=== PATIENT | male | born 1970 | race African-American/Black ===

== ENCOUNTER 2021-04-27 14:00 | Emergency (ER) | payer SELFPAY ==
[~2021-04-27] VITALS: Ht 182.9 cm; Wt 83.9 kg
[2021-04-27 14:00] VITALS: BP_SYST 141
--- NOTE | 2021-04-27 15:00 | NUR ---
Placed in room 5 . 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 To gown for exam. Side rails up. Report given to JUSTINE Rao.
--- NOTE | 2021-04-27 15:17 | NUR ---
DR CHAVIS AT BEDSIDE FOR EXAM .
--- NOTE | 2021-04-27 15:29 | NUR ---
RECEIVED PT LAYING IN BED, ON PHONE. NOT MAKING DIRECT EYE CONTACT. PT VERRBALIZED " I'M PISSED RIGHT NOW" PT AAOX4, IN NAD. RESP EVEN AND UNLABORED. ON RA @99% . PT BIBA FROM STREET FOR BEING SEEN ON THE SIDEWALK SLEEPING. PT DENIES ANY ETOH, BUT ADMITS TO SMOKING WEED. PT DENIES ANY PAIN, BUT REQUESTING A PHYSICAL. DENIES ANY INJURY. STATES HE'S MAD AT SOMEONE. DENIES ANY SI/HI. SAFETY PRECAUTIINS IN PLACE, PT INFORMED TO PUT GOWN ON FOR DR CHAVIS ASSESSMENT, VERBALIZED UNDERSTANDING. VSS.
[2021-04-27] MEDS ORDERED: KETOROLAC TROMETHAMINE 60 MG/2 ML VIAL IM ONE (15:45)
[2021-04-27 16:06] LABS: BASOPHILS # (AUTO) 0.1 K/uL (0.0-0.2); BASOPHILS % (AUTO) 0.8 % (0.0-2.0); EOSINOPHILS # (AUTO) 0.3 K/uL (0.0-0.4); EOSINOPHILS % (AUTO) 3.7 % (0.0-4.0); HEMATOCRIT 44.2 % (36-54); HEMOGLOBIN 14.8 g/dL (14.0-18.0); LYMPHOCYTES # (AUTO) 3.2 K/uL (1.0-5.5); LYMPHOCYTES % (AUTO) 40.7 % (20.5-51.5); MEAN CORPUSCULAR HEMOGLOBIN 31 pg (27-31); MEAN CORPUSCULAR HGB CONC 34 % (32-36); MEAN CORPUSCULAR VOLUME 93 fL (79.0-98.0); MONOCYTES # (AUTO) 0.8 K/uL (0.0-1.0); NEUTROPHILS # (AUTO) 3.5 K/uL (1.8-7.7); NEUTROPHILS % (AUTO) 44.8 % (40.0-70.0); PLATELET COUNT (AUTO) 202 K/uL (130-430); RED BLOOD CELL COUNT(AUTO) 4.76 MIL/uL (4.2-6.2); RED CELL DISTRIBUTION WIDTH 14.3 % (9.0-15.0); WHITE BLOOD COUNT (AUTO) 7.9 K/uL (4.8-10.8)
--- NOTE | 2021-04-27 16:10 | NUR ---
PT SITTING IN BED, IN NAD. SANDWICH BOX GIVEN.
[2021-04-27 16:37] LABS: ANION GAP 9 (5-15); CALCIUM 9.3 mg/dL (8.4-11.0); CHLORIDE 100 mmol/L (98-107); CREATININE 1.02 mg/dL (0.55-1.30); GLUCOSE 79 mg/dL (70-99); POTASSIUM 3.6 mmol/L (3.5-5.1); SODIUM SERUM 139 mmol/L (136-145); UREA NITROGEN, BLOOD 5 mg/dL (8-21)
[2021-04-27 16:44] LABS: ALANINE AMINOTRANSFERASE 21 U/L (12-78); ALBUMIN 4.1 g/dL (3.4-4.8); ALCOHOL, BLOOD 70 mg/dL (<10); ASPARTATE AMINOTRANSFERASE 19 U/L (10-37); TOTAL BILIRUBIN 0.3 mg/dL (0.0-1.0)
[2021-04-27 16:45] LABS: GFR AFRICAN AMERICAN 100 mL/min (>90)
[2021-04-27 16:46] LABS: ACETAMINOPHEN < 1 ug/mL (1-30)
--- NOTE | 2021-04-27 17:16 | NUR ---
PT SEEN TEARING UP, I ASKED WHAT WAS WRONG, STATES HE TRUSTS NO ONE, DIDNT WANT TO [place]. PRIVACY GIVVEN, REQUESTE WARM BLANKET-GIVEN. DENIES ANY PAIN.
--- NOTE | 2021-04-27 17:59 | NUR ---
PT EATING DINNER, TOLERATING WELL.
[2021-04-27 18:16] LABS: INR 1.1 (0.80-1.20); PROTHROMBIN TIME 11.6 SECS (9.5-12.5)
--- NOTE | 2021-04-27 18:29 | NUR ---
PT WALKING IN ER, DR CHAVIS OBSERVED AND OKAY TO DISCHARGE.
--- NOTE | 2021-04-27 18:34 | NUR ---
Patient given written and verbal discharge instructions and verbalizes understanding. ER MD discussed with patient the results and treatment provided. Patient in stable condition. ID arm band removed. Patient educated on pain management and to follow up with PMD. Pain Scale . Opportunity for questions provided and answered. Medication side effect fact sheet provided.
[2021-04-27 18:36] VITALS: BP_SYST 133
== END 2021-04-27 18:34 | disposition home or self-care (01) ==
LOC: SED 14:00 → EDBD 14:00 → SED 18:34
DX: F10.129 Alcohol abuse with intoxication, unspecified (principal); G89.29 Other chronic pain; M25.512 Pain in left shoulder; I49.9 Cardiac arrhythmia, unspecified; Y90.3 Blood alcohol level of 60-79 mg/100 ml
CPT/HCPCS: 36415; 71045; 80053; 82550; 84484; 85025; 85610; 85730; 93005; 96372; 99285; G0480; G0482; J1885